=== PATIENT | female | born 1955 | race Caucasian/White ===

== ENCOUNTER 2022-06-20 06:24 | Day surgery (SDC) | payer OTHER ==
[~2022-06-20] VITALS: Ht 142.2 cm; Wt 57.3 kg
[2022-06-20] MEDS ORDERED: LIDOCAINE 2% 11 ML JELLY TP ONE (06:25)
[2022-06-20] MEDS ORDERED: BENZOCAINE 20% 50 MCG/SPRAY 57 GM TP ONE (06:25)
[2022-06-20] MEDS ORDERED: ALBUTEROL SULFATE 2.5 MG/0.5 ML NEB SOLUTION NEB ONE (06:25)
[2022-06-20] MEDS ORDERED: LIDOCAINE 4% 50 ML SOLUTION TP ONE (06:25)
[2022-06-20] MEDS ORDERED: SODIUM CHLORIDE 0.9% 1,000 ML IV ONE (06:30)
[2022-06-20] MEDS ORDERED: SODIUM CHLORIDE 0.9% 1,000 ML ONE (06:33)
[2022-06-20 06:47] LABS: COVID AG,FIA SOURCE NASAL SWAB
[2022-06-20] MEDS ORDERED: POTA-206 PO (07:32)
[2022-06-20] MEDS ORDERED: LOSA-381 PO (07:32)
[2022-06-20] MEDS ORDERED: FAMO20 PO (07:32)
[2022-06-20] MEDS ORDERED: CARV3 PO (07:32)
[2022-06-20] MEDS ORDERED: ATOR40TA28 PO (07:32)
[2022-06-20] MEDS ORDERED: MIDAZOLAM HCL 2 MG/2 ML VIAL ONE (08:15)
[2022-06-20] MEDS ORDERED: FentaNYL CITRATE PF 100 MCG/2 ML VIAL ONE (08:15)
[2022-06-20] MEDS ORDERED: MethylPREDNISolone SOD SUCC 125 MG/2 ML VIAL IVP ONE (09:15)
[2022-06-20] MEDS ORDERED: MethylPREDNISolone SOD SUCC 125 MG/2 ML VIAL ONE (09:38)
[2022-06-20] MEDS ORDERED: OXYGEN THERAPY IH SCH (20:00)
== END 2022-06-20 10:45 | disposition home or self-care (01) ==
LOC: SURGERY 06:24
PROVIDERS: ATTEND Internal Medicine Critical Care Medicine
DX: J38.4 Edema of larynx (principal); B37.0 Candidal stomatitis; I10 Essential (primary) hypertension; E78.00 Pure hypercholesterolemia, unspecified; M17.0 Bilateral primary osteoarthritis of knee; Z98.42 Cataract extraction status, left eye; Z20.822 Contact with and (suspected) exposure to COVID-19; Z79.899 Other long term (current) drug therapy
CPT/HCPCS: 31623; 87101; 87220; 87070; 31624; 94640; 71045; 87015; 87426; 87206; J3010; J2250; J2930; Q9967; J7030; C9803; J7613; Z7610